=== PATIENT | male | born 1960 | race Caucasian/White ===

== ENCOUNTER 2018-12-17 11:48 | Emergency (ER) | payer SELFPAY ==
[2018-12-17 12:21] VITALS: TEMP 97.8
--- NOTE | 2018-12-17 12:31 | ED.PDOC ---
History of Present Illness - General Chief Complaint: General Stated Complaint: Pt complains of urgency/frequency urination Time Seen by Provider: 12/17/18 12:20 Source: patient Exam Limitations: no limitations - History of Present Illness Initial Comments: RECTAL PAIN, CONSTIPATION, DECREASED CALIBER OF THE STOOL, RECTAL BLEEDING, DYSURIA AND MALAISE. HE ALSO VOICES THAT HE HAS LOST ABOUT 10 LBS IN THE LAS 6 MONTHS. ALSO VOICES THAT HIS STOOLS HAVE A GROOVE ON THEM WHENEVER HE DEFECATES. Timing/Duration: unsure Severity: moderate Worsening Factors: nothing Associated Symptoms: loss of appetite, malaise Allergies/Adverse Reactions: Allergies Morphine Allergy (Verified 12/17/18 12:08) Review of Systems - Review of Systems Constitutional: States: no symptoms reported EENTM: States: no symptoms reported Respiratory: States: no symptoms reported Cardiology: States: no symptoms reported Gastrointestinal/Abdominal: States: constipation Genitourinary: States: dysuria Musculoskeletal: States: no symptoms reported Skin: States: no symptoms reported Neurological: States: no symptoms reported Endocrine: States: no symptoms reported Past Medical History (General) - Patient Medical History Hx Stroke: No Hx Asthma: Yes Hx of COPD: No Hx Congestive Heart Failure: No Hx Hypertension: No Hx Diabetes: No Hx Gastroesophageal Reflux: Yes Hx Cancer: No Surgical History: other - Vaccination History Hx Tetanus, Diphtheria Vaccination: No Hx Influenza Vaccination: No Hx Pneumococcal Vaccination: No Immunizations Up to Date: No - Social History Hx Tobacco Use: Yes Hx Alcohol Use: Yes Hx Substance Use: Yes Hx Depression: No - Female History Patient is a Female of Child Bearing Age (10 -59 yrs old): No Patient : No Family Medical History - Family History Mother Living Status: Unknown Hx Family Cancer: Yes Physical Exam - Physical Exam General Appearance: Alert, No apparent distress, Well Developed, Well Hydrated Eye Exam: bilateral normal Neck: non-tender, full range of motion, supple Respiratory: chest non-tender, lungs clear, normal breath sounds, no respiratory distress, no accessory muscle use Cardiovascular/Chest: normal peripheral pulses, regular rate, rhythm, no edema Gastrointestinal/Abdominal: normal bowel sounds, non tender, soft, no organomegaly, no pulsatile mass Back Exam: normal inspection Extremity: normal range of motion Progress - Results/Orders Results/Orders: Laboratory Results WBC 7.1 K/mm3 (4.8-10.8) 12/17/18 12:54 RBC 5.61 M/mm3 (4.70-6.10) 12/17/18 12:54 Hgb 14.0 gm/dL (14.0-18.0) 12/17/18 12:54 Hct 42.6 % (42.0-52.0) 12/17/18 12:54 MCV 76.0 fl (80.0-94.0) L 12/17/18 12:54 MCH 25.0 pg (27.0-31.0) L 12/17/18 12:54 MCHC 32.9 g/dL (33.0-37.0) L 12/17/18 12:54 RDW 19.0 % (11.5-14.5) H 12/17/18 12:54 Plt Count 277 K/mm3 (130-400) 12/17/18 12:54 MPV 9.3 fl (7.40-10.4) 12/17/18 12:54 Absolute Neuts (auto) 4.10 K/uL (1.8-6.8) 12/17/18 12:54 Absolute Lymphs (auto) 1.80 K/uL (1.0-3.4) 12/17/18 12:54 Absolute Monos (auto) 0.90 K/uL (0.2-0.8) H 12/17/18 12:54 Absolute Eos (auto) 0.30 K/uL (0.0-0.4) 12/17/18 12:54 Absolute Basos (auto) 0.10 K/uL (0.0-0.1) 12/17/18 12:54 Neutrophils % 58.0 % (42.0-78.0) 12/17/18 12:54 Lymphocytes % 25.3 % (20.0-50.0) 12/17/18 12:54 Monocytes % 12.2 % (2.0-9.0) H 12/17/18 12:54 Eosinophils % 3.6 % (1.0-5.0) 12/17/18 12:54 Basophils % 0.9 % (0.0-2.0) 12/17/18 12:54 PT 10.4 SECONDS (9.0-10.9) 12/17/18 12:54 INR 1.04 (0.9-1.15) 12/17/18 12:54 PTT (SP) 27.0 SECONDS (21.8-31.6) 12/17/18 12:54 Sodium 134 mmol/L (135-145) L 12/17/18 12:54 Potassium 3.8 mmol/L (3.6-5.0) 12/17/18 12:54 Chloride 101 mmol/L (101-111) 12/17/18 12:54 Carbon Dioxide 20 mmol/L (21-31) L 12/17/18 12:54 Anion Gap 16.8 (12-18) 12/17/18 12:54 BUN 23 mg/dL (7-18) H 12/17/18 12:54 Creatinine 1.18 mg/dL (0.6-1.3) 12/17/18 12:54 BUN/Creatinine Ratio 19.5 (10-20) 12/17/18 12:54 Random Glucose 86 mg/dL (70-105) 12/17/18 12:54 Serum Osmolality 271.2 mOsm/L (275-295) L 12/17/18 12:54 Calcium 9.0 mg/dL (8.4-10.2) 12/17/18 12:54 Total Bilirubin 0.9 mg/dL (0.2-1.0) 12/17/18 12:54 AST 44 IU/L (10-42) H 12/17/18 12:54 ALT 41 IU/L (10-60) 12/17/18 12:54 Alkaline Phosphatase 95 IU/L (42-121) 12/17/18 12:54 Serum Total Protein 8.8 gm/dL (6.4-8.2) H 12/17/18 12:54 Albumin 4.8 g/dl (3.2-5.5) 12/17/18 12:54 Globulin 4.0 gm/dL (2.3-3.5) H 12/17/18 12:54 Albumin/Globulin Ratio 1.2 (1.1-1.9) 12/17/18 12:54 Urine Color Yellow (Yellow) 12/17/18 14:27 Urine Appearance Clear (Clear) 12/17/18 14:27 Urine pH 6.0 (4.5-7.8) 12/17/18 14:27 Ur Specific [place] 1.020 (1.005-1.030) 12/17/18 14:27 Urine Protein Negative mg/dL 12/17/18 14:27 Urine Glucose (UA) Negative mg/dL (Negative) 12/17/18 14:27 Urine Ketones 40 mg/dL (NEGATIVE) H 12/17/18 14:27 Urine Blood Negative (Negative) 12/17/18 14:27 Urine Nitrite Negative 12/17/18 14:27 Urine Bilirubin Negative (NEGATIVE) 12/17/18 14:27 Urine Urobilinogen 0.2 mg/dL (0.2-1.0) 12/17/18 14:27 Ur Leukocyte Esterase Negative (Negative) 12/17/18 14:27 Urine RBC 0 /hpf 12/17/18 14:27 Urine WBC 0 /hpf 12/17/18 14:27 Ur Epithelial Cells 0-1 /hpf 12/17/18 14:27 Urine Bacteria 0 12/17/18 14:27 Stool Occult Blood Positive (NEGATIVE) 12/17/18 14:[address] ARCE'S DIRECT[employer] IN [place]. FINALLY WE FAXED ALL THE INFORMATION, INCLUDING MY NOTE WITH MY CONCERNS, THE FACE SHEET AND IT WONT BE UNTIL TOMORROW THAT THEY WILL KNOW ABOUT THIS NEEDED GI CONSULTATION. OUR NURSING STAFF WILL FOLLOW CLOSELY. I HAVE SPOKEN IN DETAIL WITH THE PATIENT. HE UNDERSTANDS THAT HE WILL NEED A GI CONSULTATION BECAUSE OF WHAT I FEEL IS A RECTAL MASS. Departure - Departure Clinical Impression: Rectal mass Time of Disposition: 16:26 Disposition: Discharge to Home or Self Care Condition: Fair Departure Forms: ED Discharge - Pt. Copy, Patient Portal Self Enrollment Referrals: Laila Pinon NP [Primary Care Provider] - 1-2 Weeks KARIN ARCE MD [Physicians] - 1-2 Weeks Additional Instructions: WE ARE TRYING TO SCHEDULE AN APPOINTMENT WITH DR. ARCE ON Saturday THE HE WILL BE IN [place].
[2018-12-17 16:39] VITALS: BP 106/69; O2SAT 97
== END 2018-12-17 16:39 | disposition home or self-care (01) ==
LOC: ER 11:48
DX: K62.9 Disease of anus and rectum, unspecified (principal); R30.0 Dysuria; J45.909 Unspecified asthma, uncomplicated; K21.9 Gastro-esophageal reflux disease without esophagitis; Z87.891 Personal history of nicotine dependence; Z88.5 Allergy status to narcotic agent

== ENCOUNTER 2019-03-25 20:02 | Emergency (ER) | payer SELFPAY ==
[2019-03-25] MEDS ORDERED: TETRACAINE HCL 0.5% OPHTH SOL 1 DROP ONE (20:15)
[2019-03-25 20:20] VITALS: BP 156/95; TEMP 98.7; O2SAT 96
[2019-03-25] MEDS ORDERED: ERYTHROMYCIN OPHTH OINT 1 APPLIC ONE (20:23)
--- NOTE | 2019-03-25 20:28 | ED.PDOC ---
History of Present Illness - General Chief Complaint: Eye Problems Stated Complaint: Something in Left Eye Time Seen by Provider: 03/25/19 20:25 Source: patient Exam Limitations: no limitations - History of Present Illness Initial Comments: the patient is a 58-year-old male presenting to the emergency room secondary to pain in his left eye after having gotten a foreign body in the eye while mowing 3 days ago. He does have significant conjunctival injection. There is some mild blurriness of his vision. It is significantly uncomfortable no fevers. No proptosis. Extraocular movements are intact. No evidence of eyelid pathology. Timing/Duration: other - 3 days Severity: moderate Improving Factors: nothing Worsening Factors: nothing Associated Symptoms: denies symptoms Allergies/Adverse Reactions: Allergies Morphine Allergy (Verified 12/17/18 12:08) Home Medications: Ambulatory Orders NK 12/17/18 Review of Systems - Review of Systems Constitutional: States: no symptoms reported EENTM: States: see HPI Respiratory: States: no symptoms reported Cardiology: States: no symptoms reported Gastrointestinal/Abdominal: States: no symptoms reported Genitourinary: States: no symptoms reported Musculoskeletal: States: no symptoms reported Skin: States: no symptoms reported Neurological: States: no symptoms reported Endocrine: States: no symptoms reported All other Systems: No Change from Baseline Past Medical History (General) - Patient Medical History Hx Seizures: No Hx Stroke: No Hx Dementia: No Hx Asthma: Yes Hx of COPD: No Hx Cardiac Disorders: No Hx Congestive Heart Failure: No Hx Pacemaker: No Hx Hypertension: No Hx Thyroid Disease: No Hx Diabetes: No Hx Gastroesophageal Reflux: Yes Hx Renal Disease: No Hx Cancer: No Hx of HIV: No Hx Hepatitis C: No Hx MRSA: No Surgical History: other - Vaccination History Hx Tetanus, Diphtheria Vaccination: Yes Hx Influenza Vaccination: No Hx Pneumococcal Vaccination: No Immunizations Up to Date: No - Social History Hx Tobacco Use: Yes Hx Chewing Tobacco Use: No Hx Alcohol Use: Yes - One glass of wine per day Hx Substance Use: No Hx Substance Use Treatment: No Hx Depression: No Feels Threatened In Home Enviroment: No Feels Threatened In a Relationship: No Hx Physical Abuse: No Hx Emotional Abuse: No Hx Suspected Abuse: No - Activities of Daily Living Hospice Agency (if applicable):: None - Female History Patient : No - Triage Comment ED Triage Comment: Pt states that he has something in his left upper eye. Pt states that it has been there for two days and he has tried flushing it out with no success. Family Medical History - Family History Mother Living Status: Unknown Hx Family Cancer: Yes Physical Exam - Physical Exam General Appearance: Alert, Other - uncomfortable Eye Exam: right normal, left other - fluorescein exam shows a punctate corneal abrasion at approximately 9:00 about 1 mm in diameter. No evidence of residual foreign body at that site. A small hair was removed from under the eyelid. Extraocular movements are intact pupils are equally round and reactive to light and accommodation. Ears, Nose, Throat: hearing grossly normal, normal pharynx Neck: full range of motion Respiratory: no respiratory distress, no accessory muscle use Cardiovascular/Chest: normal peripheral pulses, no edema Peripheral Pulses: radial,right: 2+, radial,left: 2+ Rectal Exam: deferred Extremity: normal range of motion, non-tender, normal capillary refill Neurologic: rn infusion II-XII nml as tested, alert, normal mood/affect, oriented x 3 Skin Exam: normal color Comments: Vital Signs - 24 hr 03/25/19 03/25/19 20:12 20:15 Temperature 98.7 F Pulse Rate [ 90 90 Monitor] Respiratory 22 22 Rate Blood Pressure 156/95 [Left Arm] O2 Sat by Pulse 96 Oximetry Progress - Progress Progress: 03/25/19 20:28 the patient is a 58-year-old male presenting to the emergency room secondary to left eye pain. He does have a punctate corneal abrasion at 9:00 on the left eye. He has been placed on erythromycin ointment 1 cm every 6 hours for the next 7 days. Motrin or Aleve 2 tablets 2-3 times daily can be used for discomfort. He needs to try and wear sunglasses to keep the wind off of his eye. A small foreign body in the form of what looked like a very fine hair was also removed from underneath the eyelid. ER warnings were given for any significant worsening. Follow up with primary care doctor routinely otherwise. Departure - Departure Clinical Impression: Non-penetrating eye injury Qualifiers: Encounter type: initial encounter Laterality: left Qualified Code(s): S05.92XA - Unspecified injury of left eye and orbit, initial encounter Corneal abrasion Qualifiers: Encounter type: initial encounter Laterality: left Qualified Code(s): S05.02XA - Injury of conjunctiva and corneal abrasion without foreign body, left eye, initial encounter Disposition: Discharge to Home or Self Care Condition: Good Departure Forms: ED Discharge - Pt. Copy, Patient Portal Self Enrollment Instructions: Corneal Abrasion (DC) Diet: regular diet Activity: increase activity as tolerated Referrals: Laila Pinon, [facility] [Primary Care Provider] - 1-2 Weeks Home Medications: Ambulatory Orders NK 12/17/18 Additional Instructions: the patient is a 58-year-old male presenting to the emergency room secondary to left eye pain. He does have a punctate corneal abrasion at 9:00 on the left eye. He has been placed on erythromycin ointment 1 cm every 6 hours for the next 7 days. Motrin or Aleve 2 tablets 2-3 times daily can be used for discomfort. He needs to try and wear sunglasses to keep the wind off of his eye. A small foreign body in the form of what looked like a very fine hair was also removed from underneath the eyelid. ER warnings were given for any significant worsening. Follow up with primary care doctor routinely otherwise.
[2019-03-25] MEDS ORDERED: ERYTHROMYCIN OPHTH OINT 1 APPLIC LEFT_EYE ONE (20:31)
== END 2019-03-25 20:33 | disposition home or self-care (01) ==
LOC: ER 20:02
DX: S05.02XA Injury of conjunctiva and corneal abrasion without foreign body, left eye, initial encounter (principal); S00.252A Superficial foreign body of left eyelid and periocular area, initial encounter; J45.909 Unspecified asthma, uncomplicated; K21.9 Gastro-esophageal reflux disease without esophagitis; Z87.891 Personal history of nicotine dependence; Z88.5 Allergy status to narcotic agent; Y92.9 Unspecified place or not applicable